=== PATIENT | female | born 1950 | race Caucasian/White ===

== ENCOUNTER 2017-12-18 17:41 | Emergency (ER) | payer MEDICARE, OTHER ==
[2017-12-18] MEDS: ONDANSETRON (ODT) 4 MG TAB ODT (18:17)
[2017-12-18] MEDS: LIDOCAINE/MYLANTA 40 ML BTL PO (18:17)
[2017-12-18] MEDS: morphine 4 MG/ML VIAL IM (19:07)
== END 2017-12-18 20:33 | disposition home or self-care (01) ==
LOC: E/R 17:41
DX: R09.89 Other specified symptoms and signs involving the circulatory and respiratory systems (principal); I10 Essential (primary) hypertension; Z79.82 Long term (current) use of aspirin
CPT/HCPCS: 71045; 96372; 99284-25